=== PATIENT | female | born 1935 | race Caucasian/White ===

== ENCOUNTER 2016-07-10 08:10 | Day surgery (SDC) | payer MEDICARE, OTHER ==
[~2016-07-10] VITALS: Ht 147.3 cm; Wt 68.0 kg
[2016-07-10] VITALS (8 sets, daily range): BP systolic 95–150; BP diastolic 51–78
--- NOTE | 2016-07-10 07:21 | NUR ---
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 PATIENT CONTACTED FOR DETAILS. REPORTS TEMPERATURE OF 96.1 30 MINUTES AGO. REPORTS TEMPERATURE WAS "91 SOMETHING" DURING THE NIGHT. PATIENT EDUCATED ON NORMAL TEMPERATURE RANGE IS, AND PATIENT STATES SHE HAS NEVER BEEN THAT HIGH. PATIENT REPORTS HAVING RUNNY NOSE AND SNEEZING DURING THE NIGHT BUT THAT SHE FEELS SOMEWHAT BETTER THIS MORNING. PATIENT ALSO REPORTS A COUGH FOR TWO DAYS. PATIENT HAS COMPLETED PREP. THIS REPORTED TO SUSAN JAIN. CRISTOBAL OK TO HAVE PATIENT COME IN AND BE EVALUATED. IF PATIENT IS AFEBRILE AND WITHOUT SYMPTOMS UPON ARRIVAL, PROCEDURE WILL BE DONE. PATIENT UNDERSTANDS THAT PROCEDURE COULD BE CANCELLED IF SHE IS FEBRILE UPON ARRIVAL. PATIENT WOULD LIKE TO COME IN TO BE EVALUATED IN HOPES TO HAVE PROCEDURE DONE.
[~2016-07-10 08:10] MED LIST: LACTATED RINGERS 1,000 ML IV SCH; SODIUM CHLORIDE FLUSH 3 ML SYR IV PRN
[2016-07-10] MEDS ORDERED: ALFENTANIL 500 MCG/ML (ALFENTA) 5 ML AMP IV ONE (09:38)
[2016-07-10] MEDS ORDERED: MIDAZOLAM 2 MG/2 ML (VERSED) VIAL ONE (09:38)
[2016-07-10] MEDS ORDERED: PROPOFOL 20 ML IV ONE (09:38)
== END 2016-07-10 13:25 | disposition home or self-care (01) ==
LOC: ASC 08:10
PROVIDERS: ATTEND Surgery
PROC: 0DBL8ZX Excision of Transverse Colon, Via Natural or Artificial Opening Endoscopic, Diagnostic (ICD-10-PCS; principal; 2016-07-10)
DX: Z12.11 Encounter for screening for malignant neoplasm of colon (principal); D12.3 Benign neoplasm of transverse colon; K57.30 Diverticulosis of large intestine without perforation or abscess without bleeding; K64.8 Other hemorrhoids; K59.00 Constipation, unspecified; I12.9 Hypertensive chronic kidney disease with stage 1 through stage 4 chronic kidney disease, or unspecified chronic kidney disease; N18.2 Chronic kidney disease, stage 2 (mild); E78.5 Hyperlipidemia, unspecified; E03.9 Hypothyroidism, unspecified; E66.9 Obesity, unspecified; Z68.33 Body mass index [BMI] 33.0-33.9, adult
CPT/HCPCS: 36415; 45380; 84132; 88305; J2250; J7120